=== PATIENT | female | born 1990 | race Caucasian/White ===

== ENCOUNTER 2018-07-10 15:56 | Outpatient (REF) | payer MEDICAID, SELFPAY ==
[2018-07-10 20:19] LABS: Abs Immature Grans 0.02 k/cumm (0.0-0.09); Absolute Basophil Count 0.03 k/cumm (0.0-0.2); Absolute Eosinophil Count 0.17 k/cumm (0.0-0.7); Absolute Lymphocyte Count 1.93 k/cumm (1.2-3.4); Absolute Monocyte Count 0.46 k/cumm (0.11-0.7); Absolute Neutrophil Count 5.73 k/cumm (1.2-6.7); Basophils % 0.4; HCT 38.4 % (36.0-46.0); Immature Grans % 0.2; Lymphocytes % 23.1; Mean Corp. HGB Concentration 33.9 g/dL (32.0-36.0); Mean Corpuscular Hemoglobin 31.5 pg (27.0-33.0); Monocytes % 5.5; Neutrophils % 68.8; Platelet Count 285 x1000/uL (130-400); RBC 4.13 m/cumm (4.00-5.20); White Blood Cell Count 8.34 k/cumm (4.4-10.8)
[2018-07-10 20:30] LABS: ALT 27 U/L (12-78); AST 19 U/L (15-37); Albumin 4.2 g/dL (3.4-5.0); Alkaline Phosphatase 66 U/L (46-116); Bilirubin, Direct 0.12 mg/dL (0.00-0.20); Bilirubin, Total 0.5 mg/dL (0.2-1.0); TSH (W/Ref FT4) 3.14 uIU/mL (0.358-3.74); Total Protein 7.5 g/dL (6.4-8.2)
== END 2018-07-10 16:16 ==
LOC: NCHCN 15:56
PROVIDERS: PCP Family Medicine; Referring Provider Family Medicine; Visit Provider Family Medicine
DX: F10.21 Alcohol dependence, in remission (principal); Z87.898 Personal history of other specified conditions
CPT/HCPCS: 80076; 84443; 85025

== ENCOUNTER 2018-08-26 14:35 | Emergency (ER) | payer MEDICAID, SELFPAY ==
[2018-08-26 14:48] VITALS: BP 108/90; PULSE 122; RESP 18; TEMP 37
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
[2018-08-26] MEDS: Ketorolac 30 MG/ML VIAL IM (15:28)
[2018-08-26 15:30] VITALS: PULSE 76; RESP 16; TEMP 36.8
== END 2018-08-26 15:32 | disposition home or self-care (01) ==
PROVIDERS: Emergency Provider Nurse Practitioner Family; PCP Family Medicine
DX: M65.841 Other synovitis and tenosynovitis, right hand (principal)
CPT/HCPCS: 96372; 99284; 99283; J1885

== ENCOUNTER 2019-04-22 15:36 | Outpatient (REF) | payer MEDICAID, SELFPAY | END 2019-04-22 15:56 | LOC: NCHCN 15:36 | PROVIDERS: PCP Family Medicine; Visit Provider Nurse Practitioner Family | DX: L02.92 Furuncle, unspecified (principal) | CPT/HCPCS: 87077; 87070; 87186; 87205 ==